=== PATIENT | female | born 1945 | race Caucasian/White ===

== ENCOUNTER 2025-08-08 17:21 | Emergency (ER) | payer MEDICARE, SELFPAY ==
[2025-08-08] VITALS (15 sets, daily range): BP systolic 204–230; BP diastolic 86–98; PULSE 69–96; RESP 16–18; TEMP 36.8–36.9; O2SAT 95–97; BMI 22.1
--- NOTE | 2025-08-08 18:46 | ED_ITS ---
HPI - Fall General Chief Complaint: Fall Stated Complaint: fell Time Seen by Provider: 08/08/25 18:00 Source: patient and family Mode of arrival: Wheelchair History of Present Illness HPI Narrative: 79-year-old female with history of dementia, lives [place] with who was at bedside providing most history, denies prior history of abdominal surgeries, has had intermittent nausea and nonbloody emesis for the last 3 days, on Saturday fell out of bed, unclear if there is any traumatic sequelae, no known loss of consciousness. Three days ago patient had diarrhea, no black or red or mucoid appearance, Saturday seemed to be improved, Saturday yesterday with recurrent single episode of nonbloody diarrhea. Complaining of back pain, unclear if related to her recent fall. No focal weakness to face arm or leg. No focal numbness to face arm or leg. Denies trouble breathing, chest pain. Denies head or neck discomfort. Related Data Allergies Allergy/AdvReac Type Severity Reaction Status Date / Time No Known Drug Allergies Allergy Verified 08/08/25 17:36 Patient History Social History Smoking Status: Former smoker Smoking Status: Former smoker tobacco type: cigarettes Exam Narrative Exam Narrative: GENERAL: Well-developed patient, in mild distress. HEAD: Atraumatic. Normocephalic. EYES: Pupils equal round and reactive. Extraocular motions intact. No scleral icterus. No injection or drainage. ENT: Nose without bleeding, purulent drainage. Throat without erythema, tonsillar hypertrophy or exudate. Airway patent. NECK: Trachea midline. Non tender CARDIOVASCULAR: Regular rate and rhythm without murmurs, gallops, or rubs. RESPIRATORY: Clear to auscultation. Breath sounds equal bilaterally. No wheezes, rales, or rhonchi. GASTROINTESTINAL: Abdomen soft, non-tender, nondistended. EXTREMITIES: No edema or joint tenderness. BACK: Nontender without deformity or crepitance. No flank tenderness. NEURO: AOx3. Motor functions grossly nonfocal. SKIN: No rash or erythema of visible areas Initial Vital Signs Initial Vital Signs: Vital Signs Temperature 98.5 F 08/08/25 17:37 Pulse Rate 96 H 08/08/25 17:37 Respiratory Rate 16 08/08/25 17:37 Blood Pressure 207/94 H 08/08/25 17:37 Pulse Oximetry 95 08/08/25 17:37 Oxygen Delivery Method Room Air 08/08/25 17:37 Course Orders Ordered: ED Orders 08/08/25 19:30 XR chest 1V Stat EKG-12 Lead Stat 08/08/25 19:31 CT head/brain wo con Stat 08/08/25 19:32 CT abdomen pelvis w con Stat 08/08/25 19:55 Complete Blood Count AUTO DIFF Stat Comprehensive Metabolic Panel Stat Lactate (Lactic Acid) Stat Lipase Stat Magnesium Stat NT-proBNP (BNP-Adult 18+) Stat Procalcitonin Stat Troponin I Stat 08/08/25 21:18 US abdomen limited Stat Discontinued Medications Amlodipine Besylate (Amlodipine 5 Mg Tablet) 5 mg PO NOW ONE Stop: 08/08/25 20:15 Last Admin: 08/08/25 20:55 Dose: 5 mg Documented By: PARMINDER Sodium Chloride (Normal Saline 0.9%) 1,000 mls @ 1,000 mls/hr IV BOLUS ONE Stop: 08/08/25 20:29 Last Infusion: 08/08/25 23:05 Dose: Infused Documented By: Admin: 08/08/25 20:05 Dose: 1,000 mls/hr Documented By: YOLANDA Loperamide HCl (Loperamide 2 Mg Capsule) 2 mg PO NOW ONE Stop: 08/08/25 22:57 Last Admin: 08/08/25 23:04 Dose: 2 mg Documented By: PARMINDER Ondansetron HCl (Ondansetron 4 Mg Odt Prepack) 1 bottle MISC DIRECTED ONE Stop: 08/08/25 22:57 Last Admin: 08/08/25 23:04 Dose: 1 bottle Documented By: PARMINDER Potassium Chloride (Potassium Chloride 20 Meq/15 Ml Udc) 40 meq PO NOW ONE Stop: 08/08/25 20:35 Last Admin: 08/08/25 20:55 Dose: 40 meq Documented By: PARMINDER Vital Signs Vital signs: Vital Signs - 8 hr 08/08/25 17:37 08/08/25 19:41 08/08/25 20:00 Temperature 98.5 F Pulse Rate 96 H 81 78 Respiratory Rate 16 Blood Pressure 207/94 H Pulse Oximetry 95 96 95 Oxygen Delivery Method Room Air 08/08/25 20:00 08/08/25 20:47 08/08/25 21:00 Temperature Pulse Rate 69 71 Respiratory Rate 16 Blood Pressure 228/93 H Pulse Oximetry 97 96 Oxygen Delivery Method Room Air 08/08/25 21:05 08/08/25 21:05 08/08/25 21:30 Temperature Pulse Rate 78 76 Respiratory Rate Blood Pressure 227/98 H Pulse Oximetry 97 96 Oxygen Delivery Method Room Air 08/08/25 21:31 08/08/25 21:31 08/08/25 22:00 Temperature Pulse Rate 81 74 Respiratory Rate Blood Pressure 230/98 H Pulse Oximetry 97 97 Oxygen Delivery Method Room Air 08/08/25 22:30 08/08/25 22:38 08/08/25 22:38 Temperature Pulse Rate 79 74 Respiratory Rate Blood Pressure 219/94 H Pulse Oximetry 96 96 Oxygen Delivery Method Room Air 08/08/25 23:00 08/08/25 23:01 08/08/25 23:01 Temperature Pulse Rate 85 79 Respiratory Rate Blood Pressure 208/95 H Pulse Oximetry 97 96 Oxygen Delivery Method Room Air 08/08/25 23:18 08/08/25 23:18 08/08/25 23:30 Temperature 98.3 F Pulse Rate 73 83 Respiratory Rate 18 Blood Pressure 216/91 H 204/86 H Pulse Oximetry 96 96 Oxygen Delivery Method Room Air Room Air fall Lab Data Attestation: I reviewed the patient's lab results. Lab results narrative: White blood cell count 71474, hemoglobin 16.2, platelets adequate. Glucose 109. Renal function with increased BUN, normal creatinine. Normal serum CO2 in sodium. Potassium 3.3 slight low. Liver functions and lipase normal. BNP 1140 elevated. Troponin negative/unmeasurable. Lactate 1.2 normal. 08/08/25 19:55 08/08/25 19:55 Labs: Lab Results 08/08/25 Range/Units 19:55 WBC 11.9 H (4.5-11.0) X10^3/uL RBC 5.58 H (4.0-5.2) X10^6/uL Hgb 16.2 H (12.0-16.0) g/dL Hct 48.4 H (36-46) % MCV 86.7 (80-100) fL MCH 29.0 (26-34) PG MCHC 33.5 (30-36) % RDW 14.2 (11.6-14.8) % Plt Count 289 (150-400) X10^3/uL Neut % (Auto) 87.5 H (50-75) % Lymph % (Auto) 6.4 L (25-40) % [place] % (Auto) 5.7 (3-14) % Eos % (Auto) 0.1 L (2-4) % Baso % (Auto) 0.3 (0-2) % Neut # (Auto) 42243 H (6681-9311) /uL Lymph # (Auto) 800 L (2427-1682) /uL [place] # (Auto) 700 (0-900) /uL Eos # (Auto) 0 (0-450) /uL Baso # (Auto) 0 (0-100) /uL Sodium 138 (137-145) mmol/L Potassium 3.3 L (3.4-5.1) mmol/L Chloride 101 (98-107) mmol/L Carbon Dioxide 24 (22-32) mmol/L BUN 31 H (7-17) mg/dL Creatinine 0.73 (0.52-1.04) mg/dL Estimated GFR > 60 (>60) mL/min BUN/Creatinine Ratio 42.5 H (6-22) Glucose 109 H (70-99) mg/dL Lactate 1.2 (0.7-2.1) mmol/L Calcium 9.6 (8.4-10.2) mg/dL Magnesium 2.3 (1.6-2.3) mg/dL Total Bilirubin 1.0 (0.2-1.3) mg/dL AST 32 (14-36) IU/L ALT 26 (<35) IU/L Alkaline Phosphatase 101 (38-126) U/L Troponin I < 0.012 (0.01-0.034) ng/mL NT-Pro-B Natriuret Pep 1140 H (<450) pg/mL Total Protein 7.9 (6.3-8.2) g/dL Albumin 4.2 (3.5-5.0) g/dL Globulin 3.7 (1.7-4.1) g/dL Albumin/Globulin Ratio 1.1 (1.0-2.8) Lipase 36 (23-300) U/L Procalcitonin 0.284 (<0.5) ng/mL Imaging Data Chest x-ray: Radiologist's Impression: [address] [address] XRay Report Signed Patient: Rossi Oliver MR#: [id number] : 1945 Acct:[id number] Age/Sex: 79 / F Date of Service: 08/08/25 Loc: ED Accession Number: [id number] Procedure: XR chest 1V Ordering Provider: Justo Mcnamara MD PROCEDURE: XR CHEST 1V INDICATIONS: weak TECHNIQUE: One view of the chest was acquired. COMPARISON: None. FINDINGS: Surgical changes and devices: None. Lungs and pleura: Lungs are clear. No pleural effusions or pneumothorax. Mediastinum: Mediastinal contours appear normal. Heart size is enlarged. Bones and chest wall: No suspicious bony lesions. Overlying soft tissues appear unremarkable. IMPRESSION: No acute pulmonary process. Dictated by: Madison Peoples M.D. on 08/08/2025 at 20:54 Approved by: Madison Peoples M.D. on 08/08/2025 at 20:55 CT scan - head: Radiologist's Impression: [address] [address] [address] Scan Report Signed Patient: Rossi Oliver MR#: [id number] : 1945 Acct:[id number] Age/Sex: 79 / F Date of Service: 08/08/25 Loc: ED Accession Number: [id number] Procedure: CT head/brain wo con Ordering Provider: Justo Mcnamara MD PROCEDURE: CT HEAD/BRAIN WO CON INDICATIONS: dementia, recent fall, confusion TECHNIQUE: Noncontrast 4.5 mm thick angled axial sections acquired from the foramen magnum to the vertex, with coronal and sagittal reformats. For radiation dose reduction, the following was used: automated exposure control, adjustment of mA and/or kV according to patient size. COMPARISON: None. FINDINGS: Image quality: Diagnostic. CSF spaces: Basal cisterns are patent. No extra-axial fluid collections. The ventricles are symmetric in size and shape. Brain: No intracranial bleeds or mass effect. There is cerebral volume loss, with resultant ventricular and sulcal prominence. There are periventricular and deep white matter chronic small vessel ischemic changes. There is intracranial internal carotid artery atherosclerosis. Skull and face: Calvarium and visualized facial bones appear intact, without suspicious lesions. Sinuses: Visualized sinuses and mastoids are clear. IMPRESSION: 1. No acute intracranial process. 2. Moderate atrophy and chronic microvascular ischemic changes. Dictated by: Madison Peoples M.D. on 08/08/2025 at 20:54 Approved by: Madison Peoples M.D. on 08/08/2025 at 20:54 CT scan - abdomen/pelvis: Radiologist's Impression: [address] [address] [address] Scan Report Signed Patient: Rossi Oliver MR#: [id number] : 1945 Acct:[id number] Age/Sex: 79 / F Date of Service: 08/08/25 Loc: ED Accession Number: [id number] Procedure: CT abdomen pelvis w con Ordering Provider: Justo Mcnamara MD PROCEDURE: CT ABDOMEN PELVIS W CON INDICATIONS: diarrhea, N/V, weakness TECHNIQUE: After the administration of intravenous contrast, axial sections acquired from the lung bases to the pubic symphysis. Coronal and sagittal reformats were performed. For radiation dose reduction, the following was used: automated exposure control, adjustment of mA and/or kV according to patient size. COMPARISON: None. FINDINGS: Image quality: Diagnostic. Lower Chest: No significant findings. ABDOMEN: Liver: No solid mass. Gallbladder: Gallbladder is significantly distended with multiple luminal stones. 1.6 cm stone is present at the gallbladder neck. Wall thickness measures 5 mm. Biliary ducts: No biliary dilation. Pancreas: No ductal dilation. Spleen: Size is within normal limits. Adrenal Glands: No adrenal nodules. Kidneys and Ureters: No hydronephrosis. No solid mass. No complex renal cystic lesion which requires follow up. Stomach and Bowel: Normal colonic caliber, without significant wall thickening. Minimal diverticula. No inflammatory change. Peritoneum: No abnormal intraperitoneal fluid. No free air. Ventral Wall: No significant ventral hernia. Abdominal Nodes: No retroperitoneal or mesenteric adenopathy by size criteria. Vessels: Atherosclerotic changes of the aorta with narrowing of the distal aorta with luminal diameter measuring 0.9 cm. PELVIS: Pelvic Organs: Unremarkable. Bladder: No bladder wall thickening, accounting for underdistention. Mild appearance bladder prolapse. Pelvic Nodes: No enlarged lymph nodes. Miscellaneous: No inguinal hernias are seen. Bones: No aggressive osseous abnormality. Compression deformities are present at L1 through L4. IMPRESSION: Multiple gallstones with appearance of wall thickening suggestive cholelithiasis secondary to cholecystitis. Ultrasound is recommended for further evaluation. Dictated by: Madison Peoples M.D. on 08/08/2025 at 21:02 Approved by: Madison Peoples M.D. on 08/08/2025 at 21:06 Ultrasound right upper quadrant abdomen: Radiologist's Impression: [address] [address] Ultrasound Report Signed Patient: Rossi Oliver MR#: [id number] : 1945 Acct:[id number] Age/Sex: 79 / F Date of Service: 08/08/25 Loc: ED Accession Number: [id number] Procedure: US abdomen limited Ordering Provider: Justo Mcnamara MD PROCEDURE: US ABDOMEN LIMITED INDICATIONS: RUQ abdomen, CT shows GB stones/neck TECHNIQUE: Real-time scanning was performed of the abdominal and retroperitoneal organs, with image documentation. COMPARISON: [facility], CT, CT ABDOMEN PELVIS W CON, 08/08/2025, 20:04. FINDINGS: Liver: Liver is normal in size and homogeneous in echotexture. Gallbladder: Luminal stones. Wall thickness measures 6 mm. There is pericholecystic fluid. Biliary ducts: Intrahepatic bile ducts are non-dilated. Extrahepatic bile duct caliber measures 2 mm. Normal is 6-7 mm or less in diameter, or 10 mm or less post-cholecystectomy. Pancreas: Visualized portions of the pancreas are sonographically normal. Miscellaneous: No free abdominal fluid. IMPRESSION: Cholelithiasis with imaging appearance most suggestive of cholecystitis. Dictated by: Madison Peoples M.D. on 08/08/2025 at 22:32 Approved by: Madison Peoples M.D. on 08/08/2025 at 22:32 ECG Data Attestation: I personally reviewed and interpreted this ECG as follows: Interpretation: 195, normal sinus rhythm with rate of 74, no obvious ST segment elevation or depression changes. AK 124, QRS 108, QTC 488. MDM Narrative Medical decision making narrative: 79-year-old female with history of dementia having last few days intermittent nonbloody emesis, then diarrhea on 3 days ago, well Saturday, and again having diarrhea yesterday Saturday, with some back pain today. Afebrile, sirs screen negative. Anterior abdominal exam limited while sitting in wheelchair, initially refusing to lie down for examination. Chest x-ray no acute changes. See radiology report. Lab data: White blood cell count 19722, hemoglobin 16.2, platelets adequate. Glucose 109. Renal function with increased BUN, normal creatinine. Normal serum CO2 in sodium. Potassium 3.3 slight low. Liver functions and lipase normal. BNP 1140 elevated. Troponin negative/unmeasurable. Lactate 1.[address] head showed atrophy and senescent changes, no acute changes. See radiology report. CT abdomen and pelvis. IMPRESSION: Multiple gallstones with appearance of wall thickening suggestive cholelithiasis secondary to cholecystitis. Ultrasound is recommended for further evaluation. See radiology report. Ultrasound right upper quadrant abdomen ordered, patient/ informed agree with plan. Ultrasound right upper quadrant. IMPRESSION: Cholelithiasis with imaging appearance most suggestive of cholecystitis. See radiology report. Repeat examination in gown supine position on [facility] [place], right upper quadrant without tenderness, nondistended. We will query surgery about disposition planning. 2249, case discussed with surgery Dr. Dickey, given lack of tenderness on examination clinically does not suspect cholecystitis, does have cholelithiasis, could see patient in consultation as an outpatient for elective cholecystectomy for cholelithiasis, further management as an outpatient for now recommended. Discharge Plan Departure Patient Disposition: Home Clinical Impression: Cholelithiasis, Nausea vomiting and diarrhea Activity Restrictions/Additional Instructions: Back pain, recent nausea and vomiting, recent diarrhea. CT abdomen imaging was suspicious for gallstones and possible inflamed gallbladder changes. Ultrasound also a little suspicious for inflamed gallbladder changes, also showed gallstones. However on examination with good examination supine lying position you did not seem to have any tenderness to examination in the right upper quadrant with the gallbladder lives. Case was discussed with surgery, who felt clinically you did not have cholecystitis inflammation of the gallbladder, though you might have symptomatic gallstones, he can see you as an outpatient for now to discuss elective surgical removal of the gallbladder. Regarding your recent diarrhea, no stool specimen was collected a received from lab for testing. We gave a dose of loperamide based on your history of loose stools, that might help for you not to have any further loose stools. Home pack of ondansetron to help control nausea/vomiting. Recheck with your regular provider advised on your home [place]. Follow up with General surgery for elective consultation in clinic, you might need a referral from your primary care doctor. Clinic contact information provided for you office of Dr. Dickey, with whom I spoke for surgical consultation [place]. Return earlier to this/nearest emergency department for any change worsening symptoms or any concerns prior. Referrals: Richard Dickey MD [Physician, General Surgery] Stand Alone Forms: Patient Portal/API
--- NOTE | 2025-08-08 19:23 | PC.NURSE ---
The pt was brought into the ED by her today after a difficult week. The pt is refusing to take her off her oversized jacket. The pt is refusing to let staff draw lab work, start an IV, and the pt is refusing to provide a urine sample. 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 The pt also believes that the current president is Terence, aware of location specifically that she's in [place] but understands she's in the hospital and extremely upset about being in the emergency department and having to wait to be seen.
--- NOTE | 2025-08-08 19:30 | EKG_ITS ---
[facility] [address] [place] [address] Test Date: 2025-08-08 Pat Name: Rossi Oliver Department: [facility] Room: Gender: Female Data Integration Analyst: STONEY : 1945 Requested By: Order Number: [id number] Reading MD: Harry Chadwick Measurements Intervals [place] Rate: 74 P: 57 CO: 124 QRS: -7 QRSD: 108 T: 13 QT: 440 QTc: 488 Interpretive Statements Normal sinus rhythm Minimal voltage criteria for LVH, may be normal variant ( [place] product ) Inferior infarct , age undetermined Electronically Signed On 08-09-2025 7:51:40 PST by Harry Chadwick
--- NOTE | 2025-08-08 19:30 | DI.RAD.S_ITS ---
PROCEDURE: XR CHEST 1V INDICATIONS: weak TECHNIQUE: One view of the chest was acquired. COMPARISON: None. FINDINGS: Surgical changes and devices: None. Lungs and pleura: Lungs are clear. No pleural effusions or pneumothorax. Mediastinum: Mediastinal contours appear normal. Heart size is enlarged. Bones and chest wall: No suspicious bony lesions. Overlying soft tissues appear unremarkable. IMPRESSION: No acute pulmonary process. Dictated by: Madison Peoples M.D. on 08/08/2025 at 20:54 Approved by: Madison Peoples M.D. on 08/08/2025 at 20:55
--- NOTE | 2025-08-08 19:31 | DI.CT.S_ITS ---
PROCEDURE: CT HEAD/BRAIN WO CON INDICATIONS: dementia, recent fall, confusion TECHNIQUE: Noncontrast 4.5 mm thick angled axial sections acquired from the foramen magnum to the vertex, with coronal and sagittal reformats. For radiation dose reduction, the following was used: automated exposure control, adjustment of mA and/or kV according to patient size. COMPARISON: None. FINDINGS: Image quality: Diagnostic. CSF spaces: Basal cisterns are patent. No extra-axial fluid collections. The ventricles are symmetric in size and shape. Brain: No intracranial bleeds or mass effect. There is cerebral volume loss, with resultant ventricular and sulcal prominence. There are periventricular and deep white matter chronic small vessel ischemic changes. There is intracranial internal carotid artery atherosclerosis. Skull and face: Calvarium and visualized facial bones appear intact, without suspicious lesions. Sinuses: Visualized sinuses and mastoids are clear. IMPRESSION: 1. No acute intracranial process. 2. Moderate atrophy and chronic microvascular ischemic changes. Dictated by: Madison Peoples M.D. on 08/08/2025 at 20:54 Approved by: Madison Peoples M.D. on 08/08/2025 at 20:54
--- NOTE | 2025-08-08 19:32 | DI.CT.S_ITS ---
PROCEDURE: CT ABDOMEN PELVIS W CON INDICATIONS: diarrhea, N/V, weakness TECHNIQUE: After the administration of intravenous contrast, axial sections acquired from the lung bases to the pubic symphysis. Coronal and sagittal reformats were performed. For radiation dose reduction, the following was used: automated exposure control, adjustment of mA and/or kV according to patient size. COMPARISON: None. FINDINGS: Image quality: Diagnostic. Lower Chest: No significant findings. ABDOMEN: Liver: No solid mass. Gallbladder: Gallbladder is significantly distended with multiple luminal stones. 1.6 cm stone is present at the gallbladder neck. Wall thickness measures 5 mm. Biliary ducts: No biliary dilation. Pancreas: No ductal dilation. Spleen: Size is within normal limits. Adrenal Glands: No adrenal nodules. Kidneys and Ureters: No hydronephrosis. No solid mass. No complex renal cystic lesion which requires follow up. Stomach and Bowel: Normal colonic caliber, without significant wall thickening. Minimal diverticula. No inflammatory change. Peritoneum: No abnormal intraperitoneal fluid. No free air. Ventral Wall: No significant ventral hernia. Abdominal Nodes: No retroperitoneal or mesenteric adenopathy by size criteria. Vessels: Atherosclerotic changes of the aorta with narrowing of the distal aorta with luminal diameter measuring 0.9 cm. PELVIS: Pelvic Organs: Unremarkable. Bladder: No bladder wall thickening, accounting for underdistention. Mild appearance bladder prolapse. Pelvic Nodes: No enlarged lymph nodes. Miscellaneous: No inguinal hernias are seen. Bones: No aggressive osseous abnormality. Compression deformities are present at L1 through L4. IMPRESSION: Multiple gallstones with appearance of wall thickening suggestive cholelithiasis secondary to cholecystitis. Ultrasound is recommended for further evaluation. Dictated by: Madison Peoples M.D. on 08/08/2025 at 21:02 Approved by: Madison Peoples M.D. on 08/08/2025 at 21:06
[2025-08-08 20:01] LABS: Add Manual Diff / Slide Review NO; Hematocrit 48.4 % (36-46); Hemoglobin 16.2 g/dL (12.0-16.0); Lymphocytes Absolute Auto 800 /uL (1100-4500); Mean Corpuscular HGB Conc 33.5 % (30-36); Mean Corpuscular Hemoglobin 29.0 PG (26-34); Mean Corpuscular Volume 86.7 fL (80-100); Platelet Count 289 X10^3/uL (150-400)
[2025-08-08] MEDS: SODIUM CHLORIDE 0.9% 1,000 ML 1000 ML IV (20:05)
[2025-08-08 20:13] LABS: Lactate (Lactic Acid) 1.2 mmol/L (0.7-2.1)
[2025-08-08 20:14] LABS: Alanine Aminotransferase 26 IU/L (<35); Albumin 4.2 g/dL (3.5-5.0); Albumin Globulin Ratio 1.1 (1.0-2.8); Alkaline Phosphatase 101 U/L (38-126); Blood Urea Nitrogen 31 mg/dL (7-17); Calcium 9.6 mg/dL (8.4-10.2); Carbon Dioxide 24 mmol/L (22-32); Chloride 101 mmol/L (98-107); Estimated Glomerular Filt Rate > 60 mL/min (>60); Globulin 3.7 g/dL (1.7-4.1); Glucose 109 mg/dL (70-99); HEMOLYSIS < 15 (0-50); Lipase 36 U/L (23-300); Magnesium 2.3 mg/dL (1.6-2.3); Potassium 3.3 mmol/L (3.4-5.1); Sodium 138 mmol/L (137-145); Total Protein 7.9 g/dL (6.3-8.2)
[2025-08-08 20:26] LABS: NT-proBNP (BNP-Adult 18+) 1140 pg/mL (<450); Troponin I < 0.012 ng/mL (0.01-0.034)
[2025-08-08 20:31] LABS: Procalcitonin 0.284 ng/mL (<0.5)
[2025-08-08] MEDS: POTASSIUM CHLORIDE 20 MEQ/15 ML UDC 40 MEQ PO (20:55)
--- NOTE | 2025-08-08 21:18 | DI.US.S_ITS ---
PROCEDURE: US ABDOMEN LIMITED INDICATIONS: RUQ abdomen, CT shows GB stones/neck TECHNIQUE: Real-time scanning was performed of the abdominal and retroperitoneal organs, with image documentation. COMPARISON: [facility], CT, CT ABDOMEN PELVIS W CON, 08/08/2025, 20:04. FINDINGS: Liver: Liver is normal in size and homogeneous in echotexture. Gallbladder: Luminal stones. Wall thickness measures 6 mm. There is pericholecystic fluid. Biliary ducts: Intrahepatic bile ducts are non-dilated. Extrahepatic bile duct caliber measures 2 mm. Normal is 6-7 mm or less in diameter, or 10 mm or less post-cholecystectomy. Pancreas: Visualized portions of the pancreas are sonographically normal. Miscellaneous: No free abdominal fluid. IMPRESSION: Cholelithiasis with imaging appearance most suggestive of cholecystitis. Dictated by: Madison Peoples M.D. on 08/08/2025 at 22:32 Approved by: Madison Peoples M.D. on 08/08/2025 at 22:32
[2025-08-08] MEDS: LOPERAMIDE 2 MG CAPSULE PO (23:04)
[2025-08-08] MEDS: ONDANSETRON 4 MG ODT PREPACK 1 BOTTLE MISC (23:04)
== END 2025-08-08 23:34 | disposition home or self-care (01) ==
PROVIDERS: Emergency Provider Emergency Medicine
DX: K80.20 Calculus of gallbladder without cholecystitis without obstruction (principal); R11.2 Nausea with vomiting, unspecified; R19.7 Diarrhea, unspecified
CPT/HCPCS: 36415; 70450; 71045; 74177; 76705; 80053; 83605; 83690; 83735; 83880; 84145; 84484; 85025; 93005; 96360; 96361; 99284; J7030; Q9967